=== PATIENT | female | born 1985 | race Hispanic/Latino ===

== ENCOUNTER 2018-10-05 20:04 | Emergency (ER) | payer OTHER, SELFPAY ==
[2018-10-05 22:02] LABS: Urine Bacteria <20 /HPF (<20); Urine Culture Reflex Order NOT NEEDED
[2018-10-05 22:04] LABS: Urine Blood 2+ (NEG); Urine Glucose TRACE (NEG); Urine Protein NEGATIVE (NEG)
[2018-10-05] MEDS ORDERED: FENTANYL CITR 100 MCG/2 ML ONE (22:38)
[2018-10-05] MEDS ORDERED: KETOROLAC 30 MG/ML INJ ONE (22:39)
[2018-10-05] MEDS ORDERED: ONDANSETRON 4 MG/2 ML VIAL ONE (22:39)
[2018-10-05] MEDS ORDERED: NA CHLORIDE 0.9% 1,000 ML ONE (22:39)
[2018-10-05 22:44] LABS: Potassium 3.7 mmol/L (3.5-5.1)
[2018-10-05 23:10] LABS: Absolute Lymphocytes (CBC) 1.9 K/uL (0.7-4.9); Absolute Monocytes 0.7 K/uL (0.1-1.3); Basophils % 0.5 % (0-1.3); Eosinophils % 2.9 % (0-4.4); Hematocrit 41.7 % (36.0-45.0); Lymphocytes % 14.4 % (15.3-44.8); MPV 10.5 fL (7.6-11.3); Monocytes % 5.2 % (3.3-12.3); RBC Red Blood Cell Count 4.66 M/uL (3.86-4.86)
--- NOTE | 2018-10-06 02:09 | ER ---
Nurse's Notes [facility] Name: Kena Hirsch Age: 33 yrs Sex: Female : 1985 Arrival Date: 10/05/2018 Time: 20:08 Bed 20 Private MD: Diagnosis: Hydronephrosis with renal and ureteral calculous obstruction-recently passed Presentation: 10/05 20:24 Presenting complaint: Patient states: "This morning when I woke up I was having kidney jd3 pain around to my stomach.". Transition of care: patient was not received from another setting of care. Onset of symptoms was October 05, 2018. Risk Assessment: Do you want to hurt yourself or someone else? Patient reports no desire to harm self or others. Initial Sepsis Screen: Does the patient meet any 2 criteria? No. Patient's initial sepsis screen is negative. Does the patient have a suspected source of infection? No. Patient's initial sepsis screen is negative. Care prior to arrival: None. 20:24 Method Of Arrival: Ambulatory jd3 20:24 Acuity: CHAIM 3 jd3 Triage Assessment: 21:26 General: Appears in no apparent distress. Behavior is calm, cooperative. EENT: No signs ak1 and/or symptoms were reported regarding the EENT system. Neuro: No deficits noted. Cardiovascular: No deficits noted. Respiratory: No deficits noted. Derm: No signs and/or symptoms reported regarding the dermatologic system. Musculoskeletal: No signs and/or symptoms reported regarding the musculoskeletal system. 21:27 Pain: Complains of pain in suprapubic area. GI: Abdomen is non-distended, Bowel sounds ak1 present X 4 quads. 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 - Social history:: Smoking status: Patient/guardian denies using tobacco. - Ebola Screening: : Patient negative for fever greater than or equal to 101.5 degrees Fahrenheit, and additional compatible Ebola Virus Disease symptoms. Screenin:25 Abuse screen: Denies threats or abuse. Denies injuries from another. Nutritional ak1 screening: No deficits noted. Tuberculosis screening: No symptoms or risk factors identified. Fall Risk None identified. Assessment: 21:28 Reassessment: Patient appears in no apparent distress at this time. No changes from ak1 previously documented assessment. see triage assessment. 22:34 GI: Abd is soft and non tender X 4 quads. ak1 10/06 00:00 Reassessment: Patient appears in no apparent distress at this time. No changes from ak1 previously documented assessment. Patient and/or family updated on plan of care and expected duration. Pain level reassessed. Patient is alert, oriented x 3, equal unlabored respirations, skin warm/dry/pink. Patient states feeling better. Patient states symptoms have improved. Vital Signs: 10/05 20:26 BP 133 / 78; Pulse 65; Resp 16 S; Temp 97.9(O); Pulse Ox 100% on R/A; Weight 71.67 kg jd3 (R); Height 5 ft. 1 in. (154.94 cm) (R); Pain 5/10; 21:29 BP 139 / 78; Pulse 66; Resp 16; Temp 98(O); Pulse Ox 100% on R/A; ak1 22:00 BP 119 / 77; Pulse 63; Resp 16; Temp 98.1; Pulse Ox 100% on R/A; ak1 23:10 BP 109 / 65; Pulse 66; Resp 16; Temp 98.1; Pulse Ox 100% on R/A; ak1 10/06 00:04 BP 107 / 66; Pulse 68; Resp 16; Temp 98.1; Pulse Ox 100% on R/A; ak1 10/05 20:26 Body Mass Index 29.85 (71.67 kg, 154.94 cm) jd3 ED Course: 10/05 20:08 Patient arrived in ED. es 20:25 Triage completed. jd3 20:27 Arm band placed on. jd3 20:41 Lina Yu FNP-C is PHCP. snw 20:41 Johnathon Marin MD is Attending Physician. snw 21:25 Erin Zhang, JAMAL is Primary Nurse. ak1 21:27 Patient has correct armband on for positive identification. Bed in low position. Call ak1 light in reach. Side rails up X 1. Pulse ox on. NIBP on. 22:34 Initial lab(s) drawn, by me, sent to lab. Inserted saline lock: 20 gauge in right ak1 antecubital area, using aseptic technique. Blood collected. 10/06 00:53 CT Stone Protocol In Process Unspecified. EDMS 02:20 No provider procedures requiring assistance completed. IV discontinued, intact, ak1 bleeding controlled, No redness/swelling at site. Pressure dressing applied. Administered Medications: 10/05 22:33 Drug: NS 0.9% 1000 ml Route: IV; Rate: 1 bolus; Site: right antecubital; ak1 23:34 Follow up: IV Status: Completed infusion ak1 22:33 Drug: TORadol 30 mg Route: IVP; Site: right antecubital; ak1 23:34 Follow up: Response: No adverse reaction ak1 22:33 Drug: fentaNYL (PF) 25 mcg Route: IVP; Site: right antecubital; ak1 10/06 00:14 Follow up: Response: No adverse reaction ak1 10/05 22:34 Drug: Zofran 2 mg Route: IVP; Site: right antecubital; ak1 10/06 00:14 Follow up: Response: No adverse reaction ak1 02:10 Drug: Rocephin 1 grams Route: IV; Rate: calculated rate; Site: right antecubital; ak1 02:19 Follow up: IV Status: Completed infusion ak1 Outcome: 02:08 Discharge ordered by . chance 02:20 Discharged to home ambulatory. ak1 02:20 Condition: good 02:20 Discharge instructions given to patient, Instructed on discharge instructions, follow up and referral plans. no drinking with medication, no driving heavy equipment, medication usage, safe sex practices, control, Demonstrated understanding of instructions, follow-up care, medications, Prescriptions given X 3. 02:21 Patient left the ED. ak1 Signatures: Dispatcher [employer] EDCO Lina Yu FNP-C IT COMPLIANCE ANALYST-Josee Alba Amber RN RN ak1 Yves Aguilar RN RN jd3
--- NOTE | 2018-10-06 02:09 | EDPHYS ---
Physician Documentation [facility] Name: Kena Hirsch Age: 33 yrs Sex: Female : 1985 Arrival Date: 10/05/2018 Time: 20:08 Bed 20 Private MD: ED Physician Johnathon Marin HPI: 10/05 22:17 This 33 yrs old Unknown Female presents to ER via Ambulatory with complaints of snw Possible Kidney Stone. 22:17 The patient complains of pain in the right mid back. The pain radiates. Onset: The snw symptoms/episode began/occurred suddenly, today. Associated signs and symptoms: Pertinent positives: nausea, vomiting. Severity of pain: At its worst the pain was severe. The patient has experienced a previous episode, many years ago, and the symptoms today are exactly the same. Had a baby in Period in August. Depo last week. 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 - Social history:: Smoking status: Patient/guardian denies using tobacco. - Ebola Screening: : Patient negative for fever greater than or equal to 101.5 degrees Fahrenheit, and additional compatible Ebola Virus Disease symptoms. ROS: 22:15 Constitutional: Negative for fever, chills, and weight loss, Eyes: Negative for injury, snw pain, redness, and discharge, ENT: Negative for injury, pain, and discharge, Neck: Negative for injury, pain, and swelling, Cardiovascular: Negative for chest pain, palpitations, and edema, Respiratory: Negative for shortness of breath, cough, wheezing, and pleuritic chest pain. 22:15 : Negative for injury, bleeding, discharge, and swelling, MS/Extremity: Negative for injury and deformity, Skin: Negative for injury, rash, and discoloration, Neuro: Negative for headache, weakness, numbness, tingling, and seizure. 22:15 Abdomen/GI: Positive for abdominal pain, nausea, vomiting. 22:15 Back: Positive for flank pain, on the right. Exam: 22:15 Constitutional: This is a well developed, well nourished patient who is awake, alert, snw and in no acute distress. Head/Face: Normocephalic, atraumatic. Eyes: Pupils equal round and reactive to light, extra-ocular motions intact. Lids and lashes normal. Conjunctiva and sclera are non-icteric and not injected. Cornea within normal limits. Periorbital areas with no swelling, redness, or edema. ENT: Nares patent. No nasal discharge, no septal abnormalities noted. Tympanic membranes are normal and external auditory canals are clear. Oropharynx with no redness, swelling, or masses, exudates, or evidence of obstruction, uvula midline. Mucous membranes moist. Neck: Trachea midline, no thyromegaly or masses palpated, and no cervical lymphadenopathy. Supple, full range of motion without nuchal rigidity, or vertebral point tenderness. No Meningismus. Chest/axilla: Normal chest wall appearance and motion. Nontender with no deformity. No lesions are appreciated. Cardiovascular: Regular rate and rhythm with a normal S1 and S2. No gallops, murmurs, or rubs. Normal PMI, no JVD. No pulse deficits. Respiratory: Lungs have equal breath sounds bilaterally, clear to auscultation and percussion. No rales, rhonchi or wheezes noted. No increased work of breathing, no retractions or nasal flaring. Skin: Warm, dry with normal turgor. Normal color with no rashes, no lesions, and no evidence of cellulitis. MS/ Extremity: Pulses equal, no cyanosis. Neurovascular intact. Full, normal range of motion. Neuro: Awake and alert, GCS 15, oriented to person, place, time, and situation. Cranial nerves II-XII grossly intact. Motor strength 5/5 in all extremities. Sensory grossly intact. Cerebellar exam normal. Normal gait. Psych: Awake, alert, with orientation to person, place and time. Behavior, mood, and affect are within normal limits. 22:15 Abdomen/GI: Inspection: abdomen appears normal, Bowel sounds: normal, Palpation: abdomen is soft and non-tender, in all quadrants. 22:15 Back: pain, that is mild, that is moderate, of the right mid back, radiates around to right lower quad. Vital Signs: 20:26 BP 133 / 78; Pulse 65; Resp 16 S; Temp 97.9(O); Pulse Ox 100% on R/A; Weight 71.67 kg jd3 (R); Height 5 ft. 1 in. (154.94 cm) (R); Pain 5/10; 21:29 BP 139 / 78; Pulse 66; Resp 16; Temp 98(O); Pulse Ox 100% on R/A; ak1 22:00 BP 119 / 77; Pulse 63; Resp 16; Temp 98.1; Pulse Ox 100% on R/A; ak1 23:10 BP 109 / 65; Pulse 66; Resp 16; Temp 98.1; Pulse Ox 100% on R/A; ak1 10/06 00:04 BP 107 / 66; Pulse 68; Resp 16; Temp 98.1; Pulse Ox 100% on R/A; ak1 10/05 20:26 Body Mass Index 29.85 (71.67 kg, 154.94 cm) jd3 MDM: 10/05 22:04 Patient medically screened. snw 22:15 Data reviewed: vital signs, nurses notes. Data interpreted: Pulse oximetry: on room air snw is 100 %. Interpretation: normal. Counseling: I had a detailed discussion with the patient and/or guardian regarding: the historical points, exam findings, and any diagnostic results supporting the discharge/admit diagnosis, the presence of at least one elevated blood pressure reading (>120/80) during this emergency department visit, lab results, radiology results. 23:35 Response to treatment: the patient's symptoms have markedly improved after treatment. [facility] 10/05 21:31 Order name: Urine Culture [facility] 10/05 21:31 Order name: Urine Microscopic Only; Complete Time: 22:04 [facility] 10/05 21:35 Order name: Urine Dipstick--Ancillary (enter results) [facility] 10/05 21:35 Order name: Urine --Ancillary (enter results) [facility] 10/05 22:14 Order name: Basic Metabolic Panel; Complete Time: 22:47 w 10/05 22:14 Order name: CBC with Diff; Complete Time: 23:11 [facility] 10/05 21:31 Order name: Urine Test (obtain specimen); Complete Time: 21:36 [facility] 10/05 21:31 Order name: Urine Dipstick-Ancillary (obtain specimen); Complete Time: 21:36 [facility] 10/05 23:30 Order name: CT Stone Protocol [facility] 10/05 22:14 Order name: Labs collected and sent; Complete Time: 22:34 snw Administered Medications: 22:33 Drug: NS 0.9% 1000 ml Route: IV; Rate: 1 bolus; Site: right antecubital; ak1 23:34 Follow up: IV Status: Completed infusion ak1 22:33 Drug: TORadol 30 mg Route: IVP; Site: right antecubital; ak1 23:34 Follow up: Response: No adverse reaction ak1 22:33 Drug: fentaNYL (PF) 25 mcg Route: IVP; Site: right antecubital; ak1 10/06 00:14 Follow up: Response: No adverse reaction ak1 10/05 22:34 Drug: Zofran 2 mg Route: IVP; Site: right antecubital; ak1 10/06 00:14 Follow up: Response: No adverse reaction ak1 02:10 Drug: Rocephin 1 grams Route: IV; Rate: calculated rate; Site: right antecubital; ak1 02:19 Follow up: IV Status: Completed infusion ak1 Disposition: 03:59 Co-signature as Attending Physician, Johnathon Marin MD. Disposition: 10/06/18 02:08 Discharged to Home. Impression: Hydronephrosis with renal and ureteral calculous obstruction - recently passed. - Condition is Stable. - Discharge Instructions: Kidney Stones, Hydronephrosis, Dietary Guidelines to Help Prevent Kidney Stones, Rehydration, Adult. - Prescriptions for Augmentin 875- 125 mg Oral Tablet - take 1 tablet by ORAL route every 12 hours for 10 days; 20 tablet. Zofran 4 mg Oral Tablet - take 1 tablet by ORAL route every 12 hours As needed; 20 tablet. Diclofenac Sodium 75 mg Oral Tablet Sustained Release - take 1 tablet by ORAL route 2 times per day; 30 tablet. - Work release form, Medication Reconciliation Form, Thank You Letter, Antibiotic Education, Prescription Opioid Use form. - Follow up: Private Physician; When: 2 - 3 days; Reason: Recheck today's complaints, Continuance of care, Re-evaluation by your physician. Follow up: Emergency Department; When: As needed; Reason: Worsening of condition. Signatures: Dispatcher [employer] EDLina Morales, CONE TREATER-C CONE TREATER-Csnw Erin Zhang, RN RN ak1 Johnathon Marin MD MD gs Davies, Jonathon RN RN jd3 Corrections: (The following items were deleted from the chart) 02:21 02:08 10/06/2018 02:08 Discharged to Home. Impression: Hydronephrosis with renal and ak1 ureteral calculous obstruction - recently passed. Condition is Stable. Forms are Medication Reconciliation Form, Thank You Letter, Antibiotic Education, Prescription Opioid Use. Follow up: Private Physician; When: 2 - 3 days; Reason: Recheck today's complaints, Continuance of care, Re-evaluation by your physician. Follow up: Emergency Department; When: As needed; Reason: Worsening of condition. snw
[2018-10-06] MEDS ORDERED: CEFTRIAXONE/SWI 1gm 1 GM/10 ML SYR ONE (02:21)
--- NOTE | 2018-10-08 11:27 | RAD REPORT ---
EXAM DESCRIPTION: CT - Stone Protocol - 10/06/2018 1:15 am CLINICAL HISTORY: The patient is 33 years old and is Female; KIDNEY STONES TECHNIQUE: Axial computed tomography images of the abdomen and pelvis without intravenous contrast. Sagittal and coronal reformatted images were created and reviewed. This CT exam was performed usi ng one or more of the following dose reduction techniques: automated exposure control, adjustment o f the mA and/or kV according to patient size, and/or use of iterative reconstruction technique. COMPARISON: None. FINDINGS: LUNG BASES: Lung bases are clear. ABDOMEN: LIVER: Unremarkable. GALLBLADDER AND BILE DUCTS: Unremarkable. No calcified stones. No ductal dilation. PANCREAS: Unremarkable. No ductal dilation. SPLEEN: Unremarkable. No splenomegaly. ADRENALS: Unremarkable. No mass. KIDNEYS AND URETERS: Asymmetric enlargement of the right kidney with moderate hydronephrosis, diff use hydroureter and periureteral stranding. No radiopaque intraluminal stone. STOMACH AND BOWEL: Unremarkable. No obstruction. No mucosal thickening. PELVIS: APPENDIX: The appendix is seen and is within normal limits BLADDER: The bladder is decompressed. No radiopaque stone. REPRODUCTIVE: Suggestion of left adnexal cyst measuring 2 cm. ABDOMEN and PELVIS: INTRAPERITONEAL SPACE: Unremarkable. No free air. No significant fluid collection. BONES/JOINTS: No acute fracture. No dislocation. SOFT TISSUES: Unremarkable. VASCULATURE: Unremarkable. No abdominal aortic aneurysm. LYMPH NODES: Unremarkable. No enlarged lymph nodes. OTHER FINDINGS: Visualized is unremarkable. IMPRESSION: Asymmetric enlargement of the right kidney with moderate hydronephrosis, diffuse hydrour eter and periureteral stranding. No radiopaque intraluminal stone. Finding could be secondary to re cently passed stone. Pyelonephritis cannot be entirely excluded considering right ventricular enlarge ment. Postcontrast images may be of diagnostic use. Suggestion of 2 cm left adnexal cysts. No follow-up imaging is recommended. Reference: US recommendations based on Radiology 2010 Sep;256(3):943-54; CT/MR recommendations based on J Am Zhanna Radiol 2013;10:675-681. Electronically signed by: Addison Caballero DO 10/06/2018 1:00 AM MARKETING ASSOCIATE Electronically signed by: Addison Caballero DO 10/06/2018 1:01 AM MARKETING ASSOCIATE Due to temporary technical issues with the PACS/Fluency reporting system, reports are being signed by the in house radiologist as a courtesy to ensure prompt reporting. The interpreting radiologist is f ully responsible for the content of the report.
== END 2018-10-06 02:21 | disposition home or self-care (01) ==
LOC: ER 20:04
DX: N13.2 Hydronephrosis with renal and ureteral calculous obstruction (principal)
CPT/HCPCS: 36415; 74176; 76377; 80048; 81003; 81015; 81025; 85025; 87086; 87088; 96361; 96374; 96375; 99284; J0696; J2405; J3010; J7030

== ENCOUNTER → 2023-09-20 | Emergency (ER) | payer SELFPAY ==
[~2023-09-20] MED LIST: LIDOCAINE HCL JELLY 2% 6 ML SYRINGE TOP ONE; NICOTINE 21 MG/PAT TD ONE
--- OUTSIDE RECORDS SUMMARY | 2023-09-20 14:16 | XMS REPORT | Continuity of Care Document ---
Author Name Unknown Address [address] [facility] [address] [place] [address] [facility] thconnect Address [address] 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 Role Phone PCP, PATIENT DOES NOT HAVE A Primary Care Physic miguelito Unavailable Visit, Lam Nurse Attending Clinician Rachell Phipps Attending Clinician + RACHELL SKINNER Attending Clinician Unavail KATARINA Gunderson Attending Clinician Lam Arguello Attending Clinician Unavailable Katarina Mckinney CNM Attending Clinician [phone] Doctor Unassigned, [place] Attending Clinician U NIKO Turner Attending Clinician UnavailNiko Parker Attending Clinician + [phone] Elmira Santiago Attending Clinician [phone] AMY LYONS Attending Clinician Unavailable Amy Salvador Attending Clinician [phone] ELMIRA SWANSON Attending Clinician UnavailMAXIMO Macario Attending Clinician UnavailSYLVESTER Salazar Admitting Clinician Unavailvaughn e Payers Payer Name Policy Type Policy Number Effective Date Expirati on Date Source [facility] MEDICAID [id number] 2018 00:00:00 Problems Condition Name Condition Details Condition Category Status Onset Date Resolution Date Last Treatment Date Treating Clinician Comments Source Depo-Prove ra contracept [place] status Depo-Prove ra contracept [place] status Disease Active 02-22 00:00: 00 [facility] History of abnormal cervical Pap smear History of abnormal cervical Pap smear Disease Active 02-22 00:00: 00 Overview: Formattin g of this note might be different from the original. 2009 LGSIL, colpo DENNIS II, LEEP 2010- ent negative papcotest ing Q3 years for 25 years per ASCCP guideline s [facility] Well woman exam Well woman exam Disease Active 02-10 00:00: 00 [facility] Dysuria Dysuria Disease Active 2020-07 00:00: 00 [facility] Positive depression screening Positive depression screening Disease Active 2020-07 00:00: 00 [facility] Screen for STD (sexually transmitte d disease) Screen for STD (sexually transmitte d disease) Disease Active 12-09 00:00: 00 [facility] Obesity (BMI 30-39.9) Obesity (BMI 30-39.9) Disease Active 12-09 00:00: 00 [facility] Abnormal cervical Papanicola ou smear, unspecifie d abnormal pap finding Abnormal cervical Papanicola ou smear, unspecifie d abnormal pap finding Disease Active 2016-07 00:00: 00 [facility] 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 2009 f/u with LEEP. 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 2011. Neg follow up 2011 and 2012. [facility] Allergies, Adverse Reactions, Alerts Allergy Name Allergy Type Status Severity Reaction(s) Onset Date Inactive Date Treating Clinician Comments Source NO KNOWN ALLERGIE S Drug Class Active [facility] Social History Social Habit Start Date Stop Date Quantity Comments Source Gender identity [facility] Sexual orientation [facility] Alcohol intake 2023-09-04 00:00:00 2023-09-04 00:00:00 Current drinker of alcohol (finding) [facility] History of Social function 2023-02-21 00:00:00 2023-02-21 00:00:00 [facility] Alcohol Comment 2023-02-21 00:00:00 2023-02-21 00:00:00 socially [facility] Exposure to SARS-CoV-2 (event) 2022-11-06 00:00:00 2022-11-16 12:56:00 Not sure [facility] Tobacco use and exposure 2022-02-10 00:00:00 2022-02-10 00:00:00 Smokeless tobacco non-user [facility] Sex Assigned At 1985 00:00:00 1985 00:00:00 [facility] Smoking Status Start Date Stop Date Source Never smoked tobacco [facility] Medications Ordered Medication Name Filled Medication Name Start Date Stop Date Current Medication? Ordering Clinician Indication Dosage Frequency Signature (SIG) Comments Components Source medroxyPROG ESTERone (DEPO-PROVE RA) syringe 150 mg 02-21 20:30: 00 04-16 20:29 :[id number] [facility] medroxyPROG ESTERone (DEPO-PROVE RA) syringe 150 mg 02-21 20:30: 00 04-16 20:29 :00 No [id number] 150mg 150 mg, Intramuscu lar, [id number], 5 doses, First dose on Mon02/21/23 at 1530, Last dose on Mon01/23/24 at 1530, Routine [facility] medroxyPROG ESTERone (DEPO-PROVE RA) syringe 150 mg 02-21 20:30: 00 04-16 20:29 :[id number] [facility] medroxyPROG ESTERone (DEPO-PROVE RA) syringe 150 mg 02-21 20:30: 00 04-16 20:29 :00 No [id number] 150mg 150 mg, Intramuscu lar, [id number], 5 doses, First dose on Mon02/21/23 at 1530, Last dose on Mon01/23/24 at 1530, Routine [facility] medroxyPROG ESTERone (DEPO-PROVE RA) syringe 150 mg - 20:30: 00 04-16 20:29 :[id number] [facility] medroxyPROG ESTERone (DEPO-PROVE RA) syringe 150 mg 02-21 20:30: 00 04-16 20:29 :[id number] [facility] medroxyPROG ESTERone (DEPO-PROVE RA) syringe 150 mg 02-21 20:30: 00 04-16 20:29 :[id number] [facility] medroxyPROG ESTERone (DEPO-PROVE RA) syringe 150 mg 0 02-21 20:30: 00 04-16 20:29 :00 No [id number] 150mg 150 mg, Intramuscu lar, [id number], 5 doses, First dose on Mon02/21/23 at 1530, Last dose on Mon01/23/24 at 1530, Routine [facility] medroxyPROG ESTERone (DEPO-PROVE RA) syringe 150 mg 02-21 20:30: 00 04-16 20:29 :00 No [id number] [facility] medroxyPROG ESTERone (DEPO-PROVE RA) syringe 150 mg 0 02-21 20:30: 00 04-16 20:29 :00 No [id number] 150mg 150 mg, Intramuscu lar, [id number], 5 doses, First dose on 02/21/23 at 1530, Last dose on 01/23/24 at 1530, Routine [facility] medroxyPROG ESTERone (DEPO-PROVE RA) syringe 150 mg 2021-07 0-06 19:45: 00 01-12 19:44 :00 No [id number] 150mg Univer s ity [facility] medroxyPROG ESTERone (DEPO-PROVE RA) syringe 150 mg 2021-07 0-06 19:45: 00 01-12 19:44 :00 No [id number] 150mg 150 mg, Intramuscu lar, [id number], 3 doses, First dose on Beverley 05/05/22 at 1445, Last dose on Beverley 10/20/22 at 1445, Routine Univers it[facility] medroxyPROG ESTERone (DEPO-PROVE RA) syringe 150 mg 2021-07 0-06 19:45: 00 01-12 19:44 :00 No [id number] [facility] (DEPO-PROVE RA) syringe 150 mg 2021-07 0- 19:45: 00 01-12 19:44 :00 No [id number] 150mg 150 mg, Intramuscu lar, [id number], 3 doses, First dose on Beverley 05/05/22 at 1445, Last dose on Beverley 10/20/22 at 1445, Routine Univers it[facility] medroxyPROG ESTERone (DEPO-PROVE RA) syringe 150 mg 2021-07 0-06 19:45: 00 01-12 19:44 :00 No [id number] [facility] medroxyPROG ESTERone (DEPO-PROVE RA) syringe 150 mg 2021-07 0-06 19:45: 00 01-12 19:44 :00 No [id number] 150mg 150 mg, Intramuscu lar, [id number], 3 doses, First dose on Beverley 05/05/22 at 1445, Last dose on Beverley 10/20/22 at 1445, Routine Univers it[facility] medroxyPROG ESTERone (DEPO-PROVE RA) syringe 150 mg 2021-07 0-06 19:45: 00 01-12 19:44 :00 No [id number] 150mg Univer s ity [facility] medroxyPROG ESTERone (DEPO-PROVE RA) syringe 150 mg 2021-1 0-06 19:45: 00 01-12 19:44 :00 No [id number] 150mg 150 mg, Intramuscu lar, [id number], 3 doses, First dose on Beverley 05/05/22 at 1445, Last dose on Beverley 10/20/22 at 1445, Routine [facility] medroxyPROG ESTERone (DEPO-PROVE RA) syringe 150 mg 2021- 0-06 19:45: 00 11-16 18:15 :00 No [id number] 150mg [facility]iver [facility] medroxyPROG ESTERone (DEPO-PROVE RA) syringe 150 mg 2021-07 0-06 19:45: 00 11-16 18:15 :00 No [id number] 150mg 150 mg, Intramuscu lar, [id number], 3 doses, First dose on Beverley 05/05/22 at 1445, Last dose on Beverley 10/20/22 at 1445, Routine [facility] medroxyPROG ESTERone (DEPO-PROVE RA) injection 150 mg 2021-0 7-14 19:45: 00 01-12 19:44 :00 No [id number] [facility] medroxyPROG ESTERone (DEPO-PROVE RA) injection 150 mg 2-0 7-14 19:45: 00 01-12 19:44 :00 No [id number] 150mg 150 mg, Intramuscu lar, [id number], 4 doses, First dose on Beverley 02/10/22 at 1445, Last dose on [place] 10/20/22 at 1445, Routine [facility] medroxyPROG ESTERone (DEPO-PROVE RA) injection 150 mg 2-0 7-14 19:45: 00 01-12 19:44 :00 No [id number] 150mg [facility] medroxyPROG ESTERone (DEPO-PROVE RA) injection 150 mg 2-0 7-14 19:45: 00 01-12 19:44 :00 No [id number] 150mg [facility] medroxyPROG ESTERone (DEPO-PROVE RA) injection 150 mg 2021-0 7-14 19:45: 00 01-12 19:44 :00 No [id number] 150mg [facility] medroxyPROG ESTERone (DEPO-PROVE RA) injection 150 mg 2021-0 7-14 19:45: 00 01-12 19:44 :00 No [id number] 150mg [facility] medroxyPROG ESTERone (DEPO-PROVE RA) injection 150 mg 2-0 7-14 19:45: 00 01-12 19:44 :[id number] [facility] Immunizations Ordered Immunization Name Filled Immunization Name Date Status Comments Source Rubella 2010-01-19 00:00:00 Completed [facility] Rubella 2010-01-19 00:00:00 Completed [facility] Rubella 2010-01-19 00:00:00 Completed [facility] Rubella 2010-01-19 00:00:00 Completed [facility] Rubella 2010-01-19 00:00:00 Completed [facility] Rubella 2010-01-19 00:00:00 Completed [facility] Rubella 2010-01-19 00:00:00 Completed [facility] Rubella 2010-01-19 00:00:00 Completed [facility] Rubella 2010-01-19 00:00:00 Completed [facility] Rubella 2010-01-19 00:00:00 Completed [facility] Rubella 2010-01-19 00:00:00 Completed [facility] Td 2009-01-15 00:00:00 Completed [facility] Td 2009-01-15 00:00:00 Completed [facility] Td 2009-01-15 00:00:00 Completed [facility] TD, NOS 2009-01-15 00:00:00 Completed [facility] TD, NOS 2009-01-15 00:00:00 Completed [facility] TD, NOS 2009-01-15 00:00:00 Completed [facility] TD, NOS 2009-01-15 00:00:00 Completed [facility] TD, NOS 2009-01-15 00:00:00 Completed [facility] TD, NOS 2009-01-15 00:00:00 Completed [facility] TD, NOS 2009-01-15 00:00:00 Completed [facility] TD, NOS 2009-01-15 00:00:00 Completed [facility] Rubella Unknown Completed [facility] TD, NOS Unknown Completed [facility] Rubella Unknown Completed [facility] TD, NOS Unknown Completed [facility] Rubella Unknown Completed [facility] TD, NOS Unknown Completed [facility] Vital Signs Vital Name Observation Time Observation Value Comments S ource Systolic blood pressure 2023-09-04 21:10:00 126 mm[Hg] [facility] Diastolic blood pressure 2023-09-04 21:10:00 77 mm[Hg] [facility] Heart rate 2023-09-04 21:10:00 84 /min [facility] Body temperature 2023-09-04 21:10:00 36.22 Jeannette [facility] Respiratory rate 2023-09-04 21:10:00 19 /min [facility] Body height 2023-09-04 21:10:00 157.5 cm [facility] Body weight 2023-09-04 21:10:00 83.099 kg [facility] BMI 2023-09-04 21:10:00 33.51 kg/m2 [facility] Systolic blood pressure 2023-05-18 20:22:00 122 mm[Hg] [facility] Diastolic blood pressure 2023-05-18 20:22:00 76 mm[Hg] [facility] Heart rate 2023-05-18 20:22:00 87 /min [facility] Body temperature 2023-05-18 20:22:00 36.72 Jeannette [facility] Respiratory rate 2023-05-18 20:22:00 18 /min [facility] Body height 2023-05-18 20:22:00 157.5 cm [facility] Body weight 2023-05-18 20:22:00 81.239 kg [facility] BMI 2023-05-18 20:22:00 32.76 kg/m2 [facility] Systolic blood pressure 2023-02-21 19:55:00 130 mm[Hg] [facility] Diastolic blood pressure 2023-02-21 19:55:00 78 mm[Hg] [facility] Heart rate 2023-02-21 19:55:00 78 /min [facility] Body temperature 2023-02-21 19:55:00 36.61 Jeannette [facility] Respiratory rate 2023-02-21 19:55:00 18 /min [facility] Body height 2023-02-21 19:55:00 157.5 cm [facility] Body weight 2023-02-21 19:55:00 79.606 kg [facility] BMI 2023-02-21 19:55:00 32.10 kg/m2 [facility] Systolic blood pressure 2022-11-16 18:03:00 125 mm[Hg] [facility] Diastolic blood pressure 2022-11-16 18:03:00 84 mm[Hg] [facility] Heart rate 2022-11-16 18:03:00 74 /min [facility] Body temperature 2022-11-16 18:03:00 37.17 Jeannette [facility] Respiratory rate 2022-11-16 18:03:00 16 /min [facility] Body height 2022-11-16 18:03:00 157.5 cm [facility] Body weight 2022-11-16 18:03:00 75.07 kg [facility] BMI 2022-11-16 18:03:00 30.27 kg/m2 [facility] Systolic blood pressure 2022-08-22 20:51:00 126 mm[Hg] [facility] Diastolic blood pressure 2022-08-22 20:51:00 77 mm[Hg] [facility] Heart rate 2022-08-22 20:51:00 72 /min [facility] Body temperature 2022-08-22 20:51:00 35.94 Jeannette [facility] Respiratory rate 2022-08-22 20:51:00 18 /min [facility] Body weight 2022-08-22 20:51:00 70.308 kg [facility] BMI 2022-08-22 20:51:00 28.35 kg/m2 [facility] Systolic blood pressure 2022-05-05 18:41:00 123 mm[Hg] [facility] Diastolic blood pressure 2022-05-05 18:41:00 67 mm[Hg] [facility] Heart rate 2022-05-05 18:41:00 79 /min [facility] Body temperature 2022-05-05 18:41:00 36.78 Jeannette [facility] Respiratory rate 2022-05-05 18:41:00 18 /min [facility] Body height 2022-05-05 18:41:00 157.5 cm [facility] Body weight 2022-05-05 18:41:00 70.421 kg [facility] BMI 2022-05-05 18:41:00 28.40 kg/m2 [facility] Systolic blood pressure 2022-02-10 19:06:00 121 mm[Hg] [facility] Diastolic blood pressure 2022-02-10 19:06:00 68 mm[Hg] [facility] Heart rate 2022-02-10 19:06:00 68 /min [facility] Body temperature 2022-02-10 19:06:00 36.22 Jeannette [facility] Respiratory rate 2022-02-10 19:06:00 18 /min [facility] Body height 2022-02-10 19:06:00 157.5 cm [facility] Body weight 2022-02-10 19:06:00 72.632 kg [facility] BMI 2022-02-10 19:06:00 29.29 kg/m2 [facility] Procedures Procedure Date / Time Performed Performing Clinicia n Source POCT TEST 2023-09-04 21:16:00 Itz Skinner [facility] ASSIGNMENT OF BENEFITS 2023-02-21 19:34:24 Docto r Unassigned, [place] [facility] CONSENT/REFUSAL FOR DIAGNOSIS AND TREATMENT 2023-02-21 19:34:04 Doctor Unassigned, [place] [facility] POCT TEST 2022-08-22 20:40:00 Itz Skinner [facility] Encounters Start Date/Time End Date/Time Encounter Type Admission Type Attending [facility] Care Facility Care Department Encounter ID Source 2023-09-04 15:30:00 2023-09-04 15:30:00 Nurse Visit Visit, Rachell Kaba [facility] OPERATIONAL RISK [facility] MATERNAL & CHILD [facility] [id number] [id number] [id number] [id number] [facility] 2023-09-04 15:30:00 2023-09-04 15:21:11 Outpatient R RACHELL SKINNER [facility] [id number] [facility] 2023-08-22 14:00:00 2023-08-22 14:00:00 Outpatient R [facility] [id number] [facility] 2023-08-21 14:00:00 2023-08-21 14:00:00 Outpatient R [facility] [id number] [facility] 2023-08-18 10:30:00 2023-08-18 10:30:00 Outpatient R RACHELL SKINNER [facility] [id number] [facility] 2023-08-02 09:12:58 2023-08-02 09:12:58 Outpatient [facility] [id number] Gael Andrade 2023-05-18 15:00:00 2023-05-18 15:21:29 Outpatient R RACHELL SKINNER [facility] [id number] [facility] 2023-05-18 15:00:00 2023-05-18 15:21:29 Nurse Visit Visit, Rachell Kaba [facility] OPERATIONAL RISK [facility] & CHILD [facility] [id number] [id number] [id number] [id number] [facility] 2023-03-10 14:15:00 2023-03-10 14:30:47 Outpatient R KATARINA MCKINNEY [facility] [id number] [facility] 2023-03-10 14:15:00 2023-03-10 14:30:47 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 Lab, Ang-Rmchp Katarina Mckinney [facility] OPERATIONAL RISK [facility] & CHILD [facility] 1.0.114 350.1.13.10 [id number] [id number] [facility] 2023-03-10 00:00:00 2023-03-10 00:00:00 Telephone Katarina Mckinney [facility] OPERATIONAL RISK [facility] & CHILD [facility] 1..114 350.1.13.10 4.2.7.2.686 [id number] [facility] 2023-02-21 15:00:00 2023-02-21 15:31:20 Outpatient R KATARINA MCKINNEY [facility] [id number] [facility] 2023-02-21 15:00:00 2023-02-21 15:31:20 Office Visit Katarina Mckinney [facility] OPERATIONAL RISK [facility] & CHILD [facility] [id number] 350.1.13.10 4.2.7.2.686 [id number] [facility] 2023-02-21 00:00:00 2023-02-21 00:00:00 Orders Only Doctor Unassigned, [place] [facility] [id number] 350.1.13.10 4.2.7.2.686 [id number] [facility] 2023-02-15 10:15:00 2023-02-15 10:15:00 Outpatient R ALVERTOKATARINA GONZALEZ [facility] [id number] [facility] 2023-02-08 13:30:00 2023-02-08 13:30:00 Outpatient R KATARINA MCKINNEY [facility] [id number] [facility] 2022-11-16 13:00:00 2022-11-16 13:13:34 Outpatient RACHELL SAENZ [facility] [id number] [facility] 2022-11-16 13:00:00 2022-11-16 13:13:34 Nurse Visit Visit, Rachell Kaba [facility] OPERATIONAL RISK [facility] & CHILD [facility] [id number] 350.1.13.10 4.2.7.2.686 [id number] [facility] 2022-08-22 14:00:00 2022-08-22 14:50:23 Nurse Visit Visit, Rachell Kaba [facility] ..840.114 350.1.13.10 4.2.7.2.686 [id number] [facility] 2022-08-22 14:00:00 2022-08-22 14:00:00 Outpatient RACHELL SAENZ [facility] [id number] [facility] 2022-08-10 10:00:00 2022-08-10 10:00:00 Outpatient R NIKO CHANEY [facility] [id number] [facility] 2022-08-05 13:30:00 2022-08-05 13:30:00 Outpatient R RACHELL SKINNER [facility] [id number] [facility] 2022-05-05 13:15:00 2022-05-05 14:00:43 Outpatient R RACHELL SKINNER [facility] [id number] [facility] 2022-05-05 13:15:00 2022-05-05 14:00:43 Office Visit JayeshRachell thomas [facility] OPERATIONAL RISK [facility] & CHILD [facility] [id number] 350.1.13.10 [id number] [id number] [facility] 2022-05-05 13:15:00 2022-05-05 13:15:00 Outpatient R RACHELL SKINNER [facility] [id number] [facility] 2022-02-10 13:45:00 2022-02-10 14:51:25 Office Visit JayeshRachell thomas [facility] OPERATIONAL RISK [facility] CHILD [facility] [id number] 350.1.13.10 [id number] [id number] [facility] 2022-02-10 13:45:00 2022-02-10 14:51:25 Outpatient R RACHELL SKINNER [facility] [id number] [facility] 2022-02-10 13:45:00 2022-02-10 13:45:00 Outpatient R RACHELL SKINNER [facility] [id number] [facility] 2021-12-20 10:30:00 2021-12-20 10:30:00 Outpatient NIKO ALCOCER [facility] [id number] [facility] 2021-12-20 10:30:00 2021-12-20 10:30:00 Outpatient NIKO ALCOCER [facility] [id number] [facility] 2021-12-20 10:30:00 2021-12-20 10:30:00 Outpatient NIKO ALCOCER [facility] [id number] [facility] 2021-11-18 14:00:00 2021-11-18 14:28:29 Nurse Visit Visit, Justin-Rmp Nurse Niko Chaney [facility] OPERATIONAL RISK [facility] MATERNAL & CHILD [facility] ..840.114 350.1.13.10 [id number] [id number] [facility] 2021-11-18 14:00:00 2021-11-18 14:00:00 Outpatient R CHANEYNIKO [facility] [id number] [facility] 2021-08-26 15:00:00 2021-08-26 15:17:44 Nurse Visit Visit, Ang-Rmchp Nurse Chaney, Niko Hargrove [facility] OPERATIONAL RISK [facility] & CHILD [facility] ..840.114 350.1.13.10 [id number] [id number] [facility] 2021-08-26 15:00:00 2021-08-26 15:00:00 Outpatient NIKO ALCOCER [facility] [id number] [facility] 2021-08-26 10:00:00 2021-08-26 10:00:00 Outpatient R [facility] [id number] [facility] 2021-08-26 10:00:00 2021-08-26 10:00:00 Outpatient R NIKO CHANEY [facility] [id number] [facility] 2021-07-29 10:45:00 2021-07-29 11:00:00 Office Visit Niko Chaney Damilola C [facility] OPERATIONAL RISK [facility] MATERNAL & CHILD [facility] ..840.114 350.1.13.10 [id number] [id number] [facility] 2021-07-29 10:45:00 2021-07-29 10:45:00 Outpatient RACHELL SAENZ [facility] [id number] [facility] 2021-07-29 10:45:00 2021-07-29 10:45:00 Outpatient RACHELL SAENZ [facility] [id number] [facility] 2021-07-26 09:15:00 2021-07-26 09:15:00 Outpatient R RACHELL SKINNER [facility] [id number] [facility] 2021-07-26 09:15:00 2021-07-26 09:15:00 Outpatient R RACHELL SKINNER [facility] [id number] [facility] 2021-06-28 00:00:00 2021-06-28 00:00:00 Telephone Niko Chaney [facility] OPERATIONAL RISK [facility] MATERNAL & CHILD [facility] 1..840.114 350.1.13.10 4.2.7.2.686 [id number] 107 [id number] [facility] 2021-06-18 00:00:00 2021-06-18 00:00:00 Patient Secure Elmira Morrison [facility] OPERATIONAL RISK [facility]ER[facility] & CHILD [facility] 1.840.114 350.1.13.10 4.2.7.2.686 [id number] [facility] 2021-06-17 16:01:00 2021-06-17 17:33:00 Emergency X AMY LYONS [facility] ERT [id number] [facility] 2021-06-17 16:01:00 2021-06-17 17:33:00 Emergency Amy Lyons [facility] 1..840.114 350.1.13.10 4.2.7.2.686 [id number] [facility] 2021-06-17 00:00:00 2021-06-17 00:00:00 Telephone Niko Chaney [facility] OPERATIONAL RISK [facility] & CHILD [facility] 1..840.114 350.1.13.10 4.2.7.2.686 [id number] [facility] 2021-06-15 14:43:16 2021-06-15 15:24:33 Office Visit Kiki Elmira Guille [facility] OPERATIONAL RISK [facility] & CHILD [facility] 1..840.114 350.1.13.10 4.2.7.2.686 [id number] [facility] 2021-06-15 14:30:00 2021-06-15 15:24:33 Outpatient R KIKI ELMIRA [facility] [id number] [facility] 2021-06-03 14:43:22 2021-06-03 15:12:35 [facility] Kiki Elmira Guille [facility] OPERATIONAL RISK [facility] ..840.114 350.1.13.10 4.2.7.2.686 [id number] [facility] 2021-06-03 14:30:00 2021-06-03 14:30:00 Outpatient R ELMIRA SWANSON [facility] [id number] [facility] 2021-06-03 14:30:00 2021-06-03 14:30:00 Outpatient R ELMIRA SWANSON [facility] [id number] [facility] 2021-06-01 10:00:00 2021-06-01 10:00:00 Outpatient R ELMIRA SWANSON [facility] [id number] [facility] 2021-05-26 09:00:00 2021-05-26 09:00:00 Outpatient R [facility] [id number] [facility] 2021-03-03 10:05:38 2021-03-03 10:30:33 Nurse Visit Visit, [facility] Niko Torres [facility] OPERATIONAL RISK [facility] 1..840.114 350.1.13.10 4.2.7.2.686 [id number] 107 [id number] [facility] 2021-03-03 10:00:00 2021-03-03 10:00:00 Outpatient R [facility] [id number] [facility] 2020-12-09 14:11:52 2020-12-09 15:19:49 Office Visit Jayeshwilliam Rachell Huyhn [facility] OPERATIONAL RISK [facility] & [facility] 1.2.840.114 350.1.13.10 4.2.7.2.686 [id number] [facility] 2020-12-09 14:00:00 2020-12-09 14:00:00 Outpatient R RACHELL SKINNER [facility] [id number] [facility] 2020-12-09 00:00:00 2020-12-09 00:00:00 Orders Only Doctor Unassigned, [place] [facility] 1.2.840.114 350.1.13.10 4.2.7.2.686 [id number] [facility] 2018-05-24 21:26:00 2018-05-26 17:15:00 Inpatient P MAXIMO SALAZAR [facility] ISIDRO [id number] [facility] Results Test Description Test Time Test Comments Results Result Co mments Source [id number]:43[facility]00* Test Item Value Reference Range Interpretation Comme nts POCT PREG (test code = 1605) Negative On board controls acceptable with C Line (test code = 3574) Yes POCT PREG LOT # (test code = 3575) POCT PREG TEST DATE ( test code = 3576) [facility] Notes Date/Time Note Provider Source 2023-03-10 13:18:00 [id number] ovxc13apVwC /[id number] [id number]:18:00 Patient stated her ex partner tested positive for syphilis. Patient is wanting to get tested. Patient informed could come in for lab work, appt made for today. 31017-6Lmyazvwsy encounter ZtxfDH4417-06-01C72:22:46Teleph one encounter NoteTXT1.2.840.476655.1.13.104. 2.7.2.486272|[id number] ble for patient [id number] mague Sauceda [address] [id number] -08-11T13:22:461.2.840.622362.1 .72.3.15|1.2.840.924773.1.13.10 [id number] Maureen Sauceda [facility] 2023-03-10 12:31:00 [id number] [id number] [id number]:31:00 Kena Proctor is a 37 year old femalePt's partner tested +Syphilis and now pt wants to be tested. No appt avail until Mar and pt is worried. Please call pt at [phone] (home) 77807-0Hdcbwiikq encounter TucvNV6729-82-01K97:36:51Teleph one encounter NoteTXT1.2.840.722449.1.13.104. 2.7.2.771113|[id number] ble for patient [id number] A [address] [id number] -08-11T12:36:511.2.840.191094.1 .72.3.15|1.2.840.549728.1.13.10 [id number] Li Galicia [facility]"
--- NOTE | 2023-09-20 14:32 | EDPHYS ---
Physician Documentation [facility] Name: Kena Proctor Age: 37 yrs Sex: Female : 1985 Arrival Date: 09/20/2023 Time: 14:13 Bed IW1 Private MD: ED Physician Storm Ohara HPI: 09/20 14:38 This 37 yrs old Female presents to ER via Ambulatory with complaints of Leg kb Injury. 14:38 Pt is a 37 year old female who was drug by her horse yesterday after it was spooked. kb Reports pain to right lower leg due to abrasions. Ambulates with steady gait. Also reports abrasions to left lower leg and bilateral hands. . Historical: - Allergies: 14:26 No Known Allergies; db - PMHx: 14:26 Kidney stones; db - Immunization history:: Adult Immunizations unknown. - Social history:: Smoking status: Patient denies any tobacco usage or history of. ROS: 14:38 Constitutional: Negative for fever, chills, and weight loss, kb 14:38 Skin: Positive for abrasion(s), of the heel of right hand, heel of left hand, right somers and left somers, 14:38 All other systems are negative, Exam: 14:38 Constitutional: This is a well developed, well nourished patient who is awake, alert, kb and in no acute distress. Head/Face: Normocephalic, atraumatic. ENT: Moist Mucous membranes Cardiovascular: Regular rate Respiratory: Respirations even and unlabored. No increased work of breathing. Talking in full sentences MS/ Extremity: Pulses equal, no cyanosis. Neurovascular intact. Full, normal range of motion. Neuro: Awake and alert, GCS 15, oriented to person, place, time, and situation. Moves all extremities. Normal gait. 14:38 Skin: injury, abrasion(s), large abrasion noted, of the right somers, 14:43 Skin: injury, abrasion(s), small abrasion noted, of the heel of right hand and heel of kb left hand and left somers, Vital Signs: 14:22 BP 119 / 95; Pulse 87; Resp 18; Temp 99; Pulse Ox 98% on R/A; Weight 77.11 kg; Height 5 db ft. 2 in. ; 14:22 Body Mass Index 31.09 (77.11 kg, 157.48 cm) db MDM: 14:19 Patient medically screened. kb 14:43 Differential diagnosis: contusion, abrasion. Data reviewed: vital signs, nurses notes. kb Test considered but Not performed: X-ray: tib/fib x-ray considered but pt ambulates with steady gait, no bony tenderness, pain is superficial. Counseling: I had a detailed discussion with the patient and/or guardian regarding the historical points, exam findings, and any diagnostic results supporting the discharge/admit diagnosis, the need for outpatient follow up, a family practitioner, to return to the emergency department if symptoms worsen or persist or if there are any questions or concerns that arise at home. Administered Medications: 14:40 Drug: Lidocaine Mucous Membrane Gel 2 % 1 application Mucous Membrane once Route: db Mucous Membrane; 14:58 Follow up: Response: No adverse reaction db Disposition Summary: 09/20/23 14:31 Discharge Ordered Notes: Location: Home kb Condition: Stable kb Diagnosis - Abrasion of lower leg - bilateral kb - Abrasion of right hand kb - Abrasion of left hand kb Followup: kb - With: Emergency Department - When: As needed - Reason: Worsening of condition Followup: kb - With: Private Physician - When: 2 - 3 days - Reason: Recheck today's complaints, Continuance of care, Re-evaluation by your physician Discharge Instructions: - Discharge Summary Sheet kb - Abrasion, Zzjo-rs-Klmu kb Forms: - Medication Reconciliation Form kb - Thank You Letter kb - Antibiotic Education kb - Prescription Opioid Use kb - Patient Portal Instructions kb - Leadership Thank You Letter kb Prescriptions: - mupirocin 2 % Topical ointment - apply 1 application TOPICAL route 2 times per day; 1 unit; Refills: 0, Product kb Selection Permitted Addendum: 09/21/2023 18:19 I was immediately available for consultation during this patient's visit. I did not e c2 personally see the patient or discuss the patient with the WIL. . Signatures: Beena Hagen, YA MCCOY-Anika Robbins, RN RN Storm Nice MD MD ec2
--- NOTE | 2023-09-20 14:32 | ER ---
Nurse's Notes [facility] Name: Kena Proctor Age: 37 yrs Sex: Female : 1985 Arrival Date: 09/20/2023 Time: 14:13 Bed IW1 Private MD: Diagnosis: Abrasion of lower leg-bilateral;Abrasion of right hand;Abrasion of left hand Presentation: 09/20 14:22 Chief complaint: Patient states: YESTERDAY INJURED DUE TO HORSE SPOOKED AND RIGHT HAND db AND BILATERAL LEGS HAVE ABRASIONS DUE TO BEING DRAGGED ACROSS GROUND. Coronavirus screen: Client denies travel out of the [place] in the last 14 days. At this time, the client does not indicate any symptoms associated with coronavirus-19. Ebola Screen: Patient negative for fever greater than or equal to 101.5 degrees Fahrenheit, and additional compatible Ebola Virus Disease symptoms Patient denies exposure to infectious person. Patient denies travel to an Ebola-affected area in the 21 days before illness onset. No symptoms or risks identified at this time. Initial Sepsis Screen: Does the patient meet any 2 criteria? No. Patient's initial sepsis screen is negative. Does the patient have a suspected source of infection? No. Patient's initial sepsis screen is negative. Risk Assessment: Do you want to hurt yourself or someone else? Patient reports no desire to harm self or others. Onset of symptoms was September 20, 2023. 14:22 Method Of Arrival: Ambulatory db 14:22 Acuity: CHAIM 4 db Triage Assessment: 14:26 General: Appears in no apparent distress. comfortable, Behavior is calm, cooperative. db Pain: Complains of pain in right hand, right leg and left leg. Neuro: Level of Consciousness is awake, alert, obeys commands, Oriented to person, place, time, situation. Respiratory: Airway is patent Respiratory effort is even, unlabored, Respiratory pattern is regular, symmetrical. Musculoskeletal: Circulation, motion, and sensation intact. Capillary refill < 3 seconds, Range of motion: intact in all extremities. Injury Description: Abrasion sustained to right leg and left leg. Historical: - Allergies: 14:26 No Known Allergies; db - PMHx: 14:26 Kidney stones; db - Immunization history:: Adult Immunizations unknown. - Social history:: Smoking status: Patient denies any tobacco usage or history of. Screenin:56 [place] ED Fall Risk Assessment (Adult) History of falling in the last 3 months, db including since admission No falls in past 3 months (0 pts) Score/Fall Risk Level 0 - 2 = Low Risk Oriented to surroundings, Maintained a safe environment. Abuse screen: Denies threats or abuse. Denies injuries from another. Nutritional screening: No deficits noted. Tuberculosis screening: No symptoms or risk factors identified. Assessment: 14:56 Reassessment: Patient appears in no apparent distress at this time. Patient and/or db family updated on plan of care and expected duration. Pain level reassessed. Patient is alert, oriented x 3, equal unlabored respirations, skin warm/dry/pink. General: Appears in no apparent distress. comfortable, Behavior is calm, cooperative. Vital Signs: 14:22 BP 119 / 95; Pulse 87; Resp 18; Temp 99; Pulse Ox 98% on R/A; Weight 77.11 kg; Height 5 db ft. 2 in. ; 14:22 Body Mass Index 31.09 (77.11 kg, 157.48 cm) db ED Course: 14:18 Patient arrived in ED. ra3 14:19 Be[facility]agen [facility]NP-C [facility] kb 14:19 Storm Ohara MD is Attending Physician. kb 14:26 Triage completed. db 14:26 Arm band placed on. db 14:54 Anika Momin, RN is Primary Nurse. db 14:56 Patient has correct armband on for positive identification. Provided Education on: db DISCHARGE AND WOUND CARE. 14:56 No provider procedures requiring assistance completed. Patient did not have IV access db during this emergency room visit. 14:56 Wound care: to abrasion, located on right leg and left leg and heel of right hand was db dressed with 4X4s, Kerlix, ABD pads. Administered Medications: 14:40 Drug: Lidocaine Mucous Membrane Gel 2 % 1 application Mucous Membrane once Route: db Mucous Membrane; 14:58 Follow up: Response: No adverse reaction db Medication: 14:56 VIS not applicable for this client. db Outcome: 14:31 Discharge ordered by . kb 14:56 Discharged to home ambulatory, db 14:56 Condition: stable 14:56 Discharge instructions given to patient, Instructed on discharge instructions, follow up and referral plans. Prescriptions given X 1, 14:58 Patient left the ED. db Signatures: Beena Hagen, YA MCCOY-Anika Robbins, RN RN db Beverly Montgomery ra3
[2023-09-20 15:07] VITALS: BP 119/95; TEMP 99; O2SAT 98
== END ==
LOC: ER 14:13
DX: S80.812A Abrasion, left lower leg, initial encounter (principal); S80.811A Abrasion, right lower leg, initial encounter; S60.512A Abrasion of left hand, initial encounter; S60.511A Abrasion of right hand, initial encounter